=== PATIENT | male | born 1995 | race Caucasian/White ===

== ENCOUNTER 2017-02-24 18:22 | Emergency (ER) | payer SELFPAY ==
[~2017-02-24] VITALS: Ht 172.7 cm; Wt 80.0 kg
[2017-02-24 18:23] VITALS: BP 127/77; PULSE 70; RESP 15; TEMP 97.6; O2SAT 99
--- NOTE | 2017-02-24 18:40 | PD ---
HPI Chief Complaint: Laceration/Skin Injury Time Seen by Provider: 18:30 Travel History International Travel<30 days: No Contact w/Intl Traveler<30days: No Traveled to known affect area: No History of Present Illness HPI 21-year-old male presents to the emergency department presents emergency Department with a left pinky finger laceration. Patient is a male Chinese speaking here with family. He was offered translation services he declined prefers his family to transport for him. He reports he was cleaning a metal tool with a sharp edge that cut his left pinky finger prior to arrival. He reports he had a tetanus shot 3 years ago. He has full range of motion and normal sensation of the digit. Bleeding is well-controlled. [facility] Past Medical History Medical History: Denies Significant Hx Social History Tobacco Use: No Allergies-Medications (Allergen,Severity, Reaction): Coded Allergies: No Known Allergies (Unverified , 02/24/17) Review of Systems Except as stated in HPI: all other systems reviewed are Neg Physical Exam Narrative GENERAL: Well-nourished, well-developed patient. SKIN: Focused skin assessment warm/dry. Left pinky finger: 2 cm laceration to the left pinky finger volar aspect. No tendon injury. Full range of motion against resistance. Normal sensation in distal digit. Brisk cap refill HEAD: Normocephalic. EYES: No scleral icterus. No injection or drainage. NECK: Supple, trachea midline. No JVD or lymphadenopathy. CARDIOVASCULAR: Regular rate and rhythm without murmurs, gallops, or rubs. RESPIRATORY: Breath sounds equal bilaterally. No accessory muscle use. GASTROINTESTINAL: Abdomen soft, non-tender, nondistended. MUSCULOSKELETAL: No cyanosis, or edema. See note above regarding finger lac. BACK: Nontender without obvious deformity. No CVA tenderness. Data Data Last Documented VS Vital Signs Date Time Temp Pulse Resp B/P Pulse Ox O2 Delivery O2 Flow Rate FiO2 02/24/17 18:23 97.6 70 15 127/77 99 Orders Lidocai-Epi 1%-1:100,000 Inj (Xylocaine- (02/24/17 18:45) Lidocaine 1% Inj (50 Ml) (Xylocaine 1% I (02/24/17 18:45) MDM Medical Decision Making Medical Screen Exam Complete: Yes Emergency Medical Condition: Yes Differential Diagnosis Finger laceration, tendon laceration, finger pain Narrative Course 21-year-old male who sustained a laceration to the left fifth digit prior to arrival. Patient has full range of motion no evidence of tendon injury. Digit is neurovascularly intact. Wound will be sutured closed. Tetanus immunization is up-to-date. Discussed wound care with patient. He was instructed to follow up with primary care in 2 days for wound check. He agrees to this plan. Diagnosis Primary Impression: Finger laceration Qualified Code: S61.219A - Finger laceration, initial encounter Referrals: Primary Care Physician Patient Instructions: Finger Laceration (ED), General Instructions Disposition: 01 DISCHARGE HOME Condition: Stable Shavon Calderon February 24, 2017 18:39
[2017-02-24] MEDS ORDERED: LIDOCAINE 1%/EPINEPHrine 1:100,000 SOLN 20 ML VIAL INFIL ONE (18:45)
[2017-02-24] MEDS ORDERED: LIDOCAINE HCL 1% 50 ML VIAL INFIL ONE (18:45)
--- NOTE | 2017-02-24 18:57 | PD ---
Physical Exam Time Seen by Provider: 18:55 Narrative I repaired the laceration to the ventral aspect of the left pinky just below the PIP joint. Data Data Last Documented VS Vital Signs Date Time Temp Pulse Resp B/P Pulse Ox O2 Delivery O2 Flow Rate FiO2 02/24/17 18:23 97.6 70 15 127/77 99 Orders Lidocai-Epi 1%-1:100,000 Inj (Xylocaine- (02/24/17 18:45) Lidocaine 1% Inj (50 Ml) (Xylocaine 1% I (02/24/17 18:45) MDM Supervised Visit with ANA MARIA: No Narrative Course I repaired the laceration to the ventral aspect of the left pinky just below the PIP joint. See my procedure note. Procedures Procedure Narrative LACERATION LOCATION: ventral aspect of the left pinky just below the PIP joint LENGTH: 1-1/2 cm NUMBER OF STITCHES/CANDI: 5 simple interrupted sutures REPAIR: The area of the laceration was prepped with Betadine and sterilely draped. The finger was digitally blocked with 1% lidocaine. The wound was copiously irrigated and explored without evidence of foreign body, tendon injury or neurovascular injury. The wound was closed using 4-0 Prolene. This was a single layer repair. A sterile dressing was applied. The patient was advised to keep the dressing clean and dry. Patient tolerated the procedure well. Diagnosis Primary Impression: Finger laceration Qualified Code: S61.219A - Finger laceration, initial encounter Referrals: Primary Care Physician Patient Instructions: General Instructions, Finger Laceration (ED) Disposition: 01 DISCHARGE HOME Condition: Stable Asha Maier February 24, 2017 18:57
== END 2017-02-24 19:12 | disposition home or self-care (01) ==
LOC: NEPK 18:22
DX: S61.219A Laceration without foreign body of unspecified finger without damage to nail, initial encounter (principal); W27.8XXA Contact with other nonpowered hand tool, initial encounter; Y93.9 Activity, unspecified; Y92.9 Unspecified place or not applicable; Y99.9 Unspecified external cause status
CPT/HCPCS: 12001

== ENCOUNTER 2017-03-03 16:00 | Emergency (ER) | payer BC ==
[~2017-03-03] VITALS: Ht 172.7 cm; Wt 75.0 kg
[2017-03-03 16:01] VITALS: BP 136/74; PULSE 70; RESP 14; TEMP 98.1; O2SAT 99
--- NOTE | 2017-03-03 16:17 | PD ---
Physical Exam Date Seen by Provider: March 03, 2017 Time Seen by Provider: 16:16 Narrative 21 yo male here for suture removal. Has sutures placed here. Denies any pain. No other medical issues. Vitals sign stable. Patient awaiting bed placement. Data Data Last Documented VS Vital Signs Date Time Temp Pulse Resp B/P Pulse Ox O2 Delivery O2 Flow Rate FiO2 03/03/17 16:01 98.1 70 14 136/74 99 MDM Medical Record Reviewed: Yes Supervised Visit with ANA MARIA: No Scripts No Active Prescriptions or Reported Meds Deshaun Matos March 03, 2017 16:17
--- NOTE | 2017-03-03 16:31 | PD ---
HPI Chief Complaint: Wound/Suture/Staple Re-Check Time Seen by Provider: 16:29 Travel History International Travel<30 days: No Contact w/Intl Traveler<30days: No History of Present Illness HPI Patient is a 21-year-old male presenting to emergency to have stitches removed from his left pinky. He denies any other complaints at this time. He denies any fevers or chills or signs of infection. [facility] Past Medical History Medical History: Denies Significant Hx Immunizations Current: Yes Social History Alcohol Use: No Tobacco Use: No Substance Use: No Allergies-Medications (Allergen,Severity, Reaction): Coded Allergies: No Known Allergies (Unverified , 02/24/17) Review of Systems Except as stated in HPI: all other systems reviewed are Neg Physical Exam Narrative GENERAL: Well-nourished, well-developed patient. SKIN: Focused skin assessment warm/dry. 6 intact stitches noted to the left fifth finger on the palmar aspect. Stitches are well approximated with no erythema, induration or exudates noted. HEAD: Normocephalic. EYES: No scleral icterus. No injection or drainage. NECK: Supple, trachea midline. No JVD or lymphadenopathy. CARDIOVASCULAR: Regular rate and rhythm without murmurs, gallops, or rubs. RESPIRATORY: Breath sounds equal bilaterally. No accessory muscle use. GASTROINTESTINAL: Abdomen soft, non-tender, nondistended. MUSCULOSKELETAL: No cyanosis, or edema. BACK: Nontender without obvious deformity. No CVA tenderness. Data Data Last Documented VS Vital Signs Date Time Temp Pulse Resp B/P Pulse Ox O2 Delivery O2 Flow Rate FiO2 03/03/17 16:01 98.1 70 14 136/74 99 [facility] Medical Decision Making Medical Screen Exam Complete: Yes Emergency Medical Condition: Yes Medical Record Reviewed: Yes Interpretation(s) Vital Signs Date Time Temp Pulse Resp B/P Pulse Ox O2 Delivery O2 Flow Rate FiO2 03/03/17 16:01 98.1 70 14 136/74 99 Differential Diagnosis Cellulitis versus wound infection versus normal healing Narrative Course Patient is a 21-year-old male presenting to the emergency department for stitches removal. Wound is well-healed, well approximated. Sutures were removed without difficulty. Patient is stable for discharge Diagnosis Primary Impression: Encounter for removal of sutures Referrals: Primary Care Physician Patient Instructions: General Instructions Departure Forms: Tests/Procedures, Work Release Enter return to work date: March 03, 2017 Special Instructions: No work restrictions Additional Instructions: Follow-up with your primary doctor Return to emergency department for any new or worsening symptoms Med/Other Pt SpecificInfo: No Change to Meds Disposition: 01 DISCHARGE HOME Condition: Stable Dafne Lin March 03, 2017 16:31
== END 2017-03-03 16:49 | disposition home or self-care (01) ==
LOC: NEPK 16:00
DX: S61.217D Laceration without foreign body of left little finger without damage to nail, subsequent encounter (principal); Z48.02 Encounter for removal of sutures; X58.XXXD Exposure to other specified factors, subsequent encounter
CPT/HCPCS: 99281